=== PATIENT | male | born 1950 | race Caucasian/White ===

== ENCOUNTER → 2016-10-19 | Day surgery (SDC) | payer MEDICARE ==
[~2016-10-19] VITALS: Ht 177.8 cm; Wt 72.6 kg
[2016-10-19] VITALS (8 sets, daily range): BP systolic 121–150; BP diastolic 77–88; PULSE 64–79; RESP 10–18; O2SAT 95–98
[~2016-10-19] MED LIST: Bupivacaine-MPF 0.5% 30 mL Inj INFILTRATE ONE; CeFAZolin Inj 2 gm / 50mL D5W IV ONE; Dexamethasone 4 mg/mL Inj IVPUSH PRN; EPHEDrine Sulfate 50 mg/mL Inj IVPUSH PRN; HYDROmorphone 1 mg/mL Inj IVPUSH PRN; IBUP200C PO; Lactated Ringer's 1,000 ML IV ONE; Lactated Ringer's 1,000 ML IV SCH; Lactated Ringer's 500 ML IV PRN; MetoCLOpramide 5 mg/mL 2 mL Inj IVPUSH PRN; OXYC5TAB72 PO; Ondansetron 2 mg/mL 2 mL Inj IVPUSH PRN; Ondansetron 2 mg/mL 2 mL Inj ONE; PROC-4 PO; Phenylephrine 10,000 mCg/mL Inj IVPUSH PRN; Propofol 10,000 mCg/mL 20 mL Inj ONE; Succinylcholine Chloride 20 mg/mL 5 mL Inj ONE; fentaNYL-PF 50 mCg/mL 2 mL Inj IVPUSH PRN; fentaNYL-PF 50 mCg/mL 2 mL Inj ONE
--- NOTE | 2016-10-19 13:53 | PCM.HPANE ---
Patient Data Date of Service: Oct 19, 2016 ([id number]) Surgeon Admitting Provider: Attending Provider:Merissa Yeboah MD Primary Care Physician:Dionicio Lucio MD Other Provider:Bret Steele Anesthesia Reason for Visit Adenopathy, Chest Skin Lesion Ht/WT & BMI Height (Feet): 5 Height (Inches): 10.00 Weight (Kilograms): 72.6 Body Mass Index 22.00 Allergies Uncoded Allergies: WELBUTRIN (Allergy, Intermediate, stated gave him a strange feeling, ) Past Anesthesia History Anesthesia History: Denies:: Anesthesia Reactions Diabetes History Hx Diabetes?: No MRSA MRSA: No Medications Home Meds Incl Beta Jose Guadalupe: No No Active Prescriptions or Reported Meds History History of ENT Problems?: No Hx of Heart Problems?: Yes Cardiovascular History: Positive for:: Chest Pain (work up 2013- stress test) Hx of Respiratory Problem?: Yes Respiratory History: Positive for:: Pneumonia (past hx of) Tuberculosis (pos PPD, requiring Rx ) Denies:: Asthma COPD Emphysema Oxygen Administration Use of C-PAP Machine Use of Inhalers / NEBS Hx Neurologic Problems?: No Neurological History: Denies:: CVA Multiple Sclerosis Parkinson's Disease Seizures Hx of GI Problems?: No Gastrointestinal History: Denies:: Heartburn (past hx of) Hx of Problems?: No Male Hx: Denies:: Prostate Problems Skin History: Positive for:: History Skin Disorders? (Ithcyothis. Chest wall lesion current admission problem) Hx Musculoskeletal Problems?: Yes Musculoskeletal History: Positive for:: Back Injury (hx of prior back injury at age 20) Hx of Psycho/Social Problems?: Yes Psycho Social History: Positive for:: Hx Depression (past hx of) Hx Surgeries?: Yes (left ankle surgery) Hx Any Other Health Problems?: Yes Other History: Denies:: Cancer Endocrine Disease Hospitalization Thyroid Disease History Blood Transfusions: Denies:: Blood Transfusions Hx Diabetes: No Hx Alcohol Use: YesAlcoholic Drinks Per Day: 3 drinks dailyHx Substance Use: Yes (marijuana) Smoking Status: Current Every Day Smoker Have You Smoked inLast 12 mo: Yes Stop/Bang Treated for Sleep Apnea?: No Do You Have a CPAP Machine?: No P-Blood Pressure: treated: No B- Body Mass Index > 35 kg/m2: No A- Age over 50: Yes N- Neck Large Circumference: No G- Gender Male: Yes Risk Assessment Category Category 1A: Patient has history of documented sleep apnea, and HAS NOT received any narcotic, sedative or anesthesia administration during this stay. Category 1B: Patient has history of documented sleep apnea, and HAS received any narcotic , sedative or anesthesia administration during this stay Category 2: Patient has SUSPECTED Obstructive Sleep Apnea, and HAS received any narcotic , sedative or anesthesia administration during this stay. Category 3: Patient has SUSPECTED Obstructive Sleep Apnea and HAS NOT received narcotic, sedative or anesthesia administration during this stay. Category 4: Outpatient in Procedural Areas with known sleep apnea or who screen positive for High Risk via the STOP/BANG questionnaire. Exam Exam Vital Signs Vital Signs Date Time Temp Pulse Resp B/P Pulse Ox O2 Delivery O2 Flow Rate FiO2 10/19/16 12:01 35.9 79 18 121/81 98 Room Air General Appearance: Alert, Oriented X3 HEENT/AIRWAY: MP 1 Lungs: Clear to Auscultation Heart: Exam Unremarkable Meds/Labs/Diagnostics Admission Meds Current Medications Lactated Ringer's (Lr) 1,000 ml @ 120 mls/hr Q8H20M ONCE IV Last administered on 10/19/16t 11:41; Start 10/19/16 at 05:00; Stop 10/19/16 at 13:19; Status DC Plan Impression Patient chart reviewed, patient interviewed and anesthestic plan with risks, benefits, and alternatives discussed, and informed consent obtained. NPO Status: 1030pm ASA Physical Status: ASA2 Mod Systemic Disease Anesthetic Plan: GA Bene/Risks/Altern/Consents: Yes HP Complete Prior to Induction: Yes Zain Villalta MD Oct 19, 2016 13:53
[2016-10-19] MEDS: CeFAZolin 2 Gm/50 mL D5W IV Premix IV ONE ×2 (13:54→14:07)
--- NOTE | 2016-10-19 15:47 | PCM.ANEP2 ---
Post Anesthesia Evaluation ASA/CMS Post Anesthesia VS in Patient's Normal Range?: Yes Resp Stable; Airway Patent?: Yes CV Function & Hydration Stable: Yes Mental Status Recovered?: Yes Pain control Satisfactory?: Yes N/V Control Satisfactory?: Yes Zain Villalta MD Oct 19, 2016 15:47
--- NOTE | 2016-10-19 15:47 | PCM.ANEP1 ---
Post Anesthesia Phase 1 PACU Phase 1 Assessment Date of Service: Oct 19, 2016 ([id number]) Vital Signs Vital Signs Date Time Temp Pulse Resp B/P Pulse Ox O2 Delivery O2 Flow Rate FiO2 10/19/16 12:01 35.9 79 18 121/81 98 Room Air Anesthetic Administered: GA Level of Alertness: Awake, talking MORRISON's with Equal Strength: Yes Pain: No Nausea or Vomiting: No Oxygen Delivery: Simple Mask Lungs: Clear to Auscultation Dermatome Level: Full Sensation Summary Converted from LMA to ETT due to copious clear secretions in the circuit. No evidence of aspiration or particulate content. Respiratory parameters were all normal. Zain Villalta MD Oct 19, 2016 15:47
--- NOTE | 2016-10-19 15:51 | PCM.SURGPO ---
Immediate Operative Note Date of Surgery: Oct 19, 2016 Pre Operative Diagnosis Chest wall lesion, L Axillary Adenopathy Post Operative Diagnosis Chest wall lesion, Left Axillary Adenopathy Procedure Excisional biopsy of left axillary lymph nodes, Excisional biopsy of chest wall lesion Surgeon and Optomechanical Technician Surgeon: Merissa Yeboah MD Assistants: Juarez Lau, WONG, Rhonda Moncada MS3 Findings Grossly enlarged nodes, 5cm skin lesion of chest wall Complications There were no periprocedural complications identified. Surgical Specimen Removed: Yes Specimen sent to Pathology: Yes Anesthetic Administered: GA Grafts, Implants: None Output, Estimated Blood Loss: 2 Blood Admin during surgery: No Attending Statement Director Of Agriculture listed was medically necessary for the successful completion of the case Merissa Yeboah MD Oct 19, 2016 15:51
--- NOTE | 2016-10-19 19:28 | OP ---
[address] [address] OPERATIVE REPORT PATIENT: TRIP CÁRDENAS : 1950 MR#: [id number] ADMIT: 10/19/2016 JOB ID: [id number] DATE OF SURGERY: 10/19/2016 PREOPERATIVE DIAGNOSIS(ES): Left axillary adenopathy and skin lesion of the chest wall. POSTOPERATIVE DIAGNOSIS(ES): Left axillary adenopathy and skin lesion of the chest wall. PROCEDURE PERFORMED: Excisional biopsy of left axillary lymph node and a 5 cm lesion of the chest wall. SURGEON: Merissa Yeboah MD. WORK MEASUREMENT ENGINEER: DEUCE Hoang MS3. INDICATIONS: The patient is a 66-year-old gentleman who had skin problems and was given the diagnosis of ichthyosis a long time ago. He noticed a swelling in the front of his chest which has slowly grown bigger over the last few months. I performed a punch biopsy of the chest wall lesion and had him see Dermatology and requested an ultrasound-guided biopsy of the left axillary lymph node. The punch biopsy showed follicular keratin cyst with chronic folliculitis and the ultrasound-guided biopsy of the left axilla lymph node showed atypical lymphoid infiltrate, highly suspicious for lymphoma, but they did not have enough tissue. After discussing the risks, benefits, and alternatives, he is here today for excisional biopsy of both the lesions. I first began by making a horizontal incision in the left axilla, entering the axillary fat and identified enlarged lymph nodes inferiorly. I dissected these free from the surrounding skin and contents of the axilla with combination of blunt and sharp dissection. Used clips and electrocautery as appropriate, and once we extracted a conglomeration of enlarged lymph nodes, we divided the specimen for Pathology and additional assessment for flow cytometry. After this, we closed the axilla after making sure we had good hemostasis. I then directed my attention to the chest wall lesion. I made an elliptical incision oriented horizontally, raising skin flaps superiorly and inferiorly. I then took the skin full thickness down to the subcutaneous fat and obtained good hemostasis. Marked the specimen, orienting it with a stitch superiorly, and then closed the skin incision in layers of 3-0 Vicryl followed by 4-0 Monocryl. Dermabond was applied for dressing. Patient tolerated the procedure well and was taken to the recovery room in stable condition.
--- NOTE | 2016-10-23 12:06 | PATH ---
SURGICAL PATHOLOGY Attending Physician:Merissa Yeboah MD CASE STATUS: Signed Out PATIENT NAME: TRIP CÁRDENAS PID: [id number] : 1950 DATE COLLECTED:10/19/2016 23:39 SPECIMEN: 1: Lymph Node, Biopsy 2: Skin, biopsy CLINICAL HISTORY: ADENOPATHY, LEFT CHEST LESION 1). LEFT AXILLARY LYMPH NODE 2). CHEST SKIN LESION STITCH SUPERIOR FINAL DIAGNOSIS: 1. 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 2. Skin, Chest, Biopsy: Atypical nodular polymorphous lymphoid infiltrate suspicious for involvement by Hodgkin lymphoma; please see comment. ICD10 C81.9 NOTE: Additional immunohistochemical stains will be performed on the chest lesion biopsy in order to confirm the impression of involvement by Hodgkin lymphoma. These results and final diagnosis will be reported in an addendum. Flow Interpretation: [id number] Left axillary lymph node: No abnormal lymphocyte population; see Comment. Flow Comment: Flow cytometry performed on a suspension of cells disaggregated from the left axillary lymph node shows that lymphocytes comprise 96% of the total recovered viable cells. Lymphocytes consist mostly of small to intermediate cells with a small population of larger cells based upon the forward angle versus side-scatter plot. Lymphocytes consist of 83% mature T cells with a CD4/CD8 ratio of 3.2 and 14% polyclonal B cells with a kappa/lambda ratio of 1.2. No aberrant antigen expression or abnormal loss of antigens is identified on T or B cells. In summary, the flow cytometric analysis does not demonstrate an abnormal T or B lymphocyte population and thus provides no evidence to support a lymphoproliferative disorder of T or B cells. Please note that this flow cytometric analysis cannot detect Hodgkin lymphoma so that it is important to correlate the negative flow cytometric findings with the biopsy morphology and immunohistochemistry, if necessary, in order to provide a definitive interpretation and final diagnosis. GROSS DESCRIPTION: The specimens are received in formalin, labeled with the patient's name, and sublabeled as the following: (2) redesignated as (1) left axillary lymph node; (3) redesignated as (2) chest skin lesion. (1) The specimen consists of a piece of lymph node (2.5 x 2.2 x 1.3 cm). Section code: (1A-1D) one lymph node, serially sectioned. Specimen entirely submitted. (2) The specimen consists of an oriented ellipse of skin with subcutaneous tissue (1.8 cm AP, 4.6 cm SI, 5.0 cm ML) oriented with a black suture indicating the superior margin. The skin surface is montiel-pink smooth, shiny and unremarkable. The subcutaneous tissue is fibrous. Ink code: yellow-posterior; black-superior; orange-inferior; green-medial; blue-lateral. Section code: (2A) medial and lateral tips; (2B-2O) remaining ellipse of skin, serially sectioned and submitted ML. Specimen entirely submitted. Note: Per the requisition the original specimen #1 was sent to flow cytometry for analysis. 10/20/16 MICRO DESCRIPTION: 1) Sections show an enlarged lymph node with an atypical infiltrate forming fibrotic nodules scattered through the lymph node. Within the fibrotic nodules is a polymorphous infiltrate of small lymphocytes, eosinophils and atypical mononuclear and binucleated cells consistent with Ad-Philip cells and variants. Immunohistochemistry is performed to confirm the morphologic impression of Hodgkin lymphoma. IMMUNOHISTOCHEMISTRY STAINRESULT XG71Adkdzeur in a subset of Ad-Philip cells. IY3Rlxrvfqe in Da-Philip cells. KH99Yhzlpxgo in Ad-Philip cells. ZP99Plwwnite in Ad-Philip cells within the fibrotic nodules. CD15:Positive in Ad-Philip cells with both surface membrane staining and enhanced cytoplasmic staining of Golgi bodies. UKM1Wwedavic in Ad-Philip cells 2) Sections from the skin lesion show atypical fibrotic nodules scattered in the subcutaneous tissue and in the deep dermis. These nodules are comprised of a polymorphous infiltrate of small lymphocytes, eosinophils and large atypical mononuclear and rare binucleated cells suggestive of Hodgkin variants of Ad-Philip cells. ICD-9 CODES: CPT CODES: 1: 25523, 91312, 22930, 06721, 27045, 67350, 94338 2: 58704, 19751, 21629, 87964, 93935, 13622, 90435 PROCEDURE/ADDENDA: Addendum SPI Addendum Diagnosis The purpose of this addendum is to report the immunohistochemical stain results on the biopsy of the chest skin lesion: STAINRESULT TW4Ybrkvrbr in atypical large cells. BY22Pnodmxnk in atypical large cells. BH13Kddyaqlg in atypical large cells. GS80Zeowvyjw in atypical large cells. PD95Anjpqkol in small subset of atypical large cells. GTB6Gibqp nuclear positivity in a small subset of atypical large lymphocytes. Addendum Comment The immunohistochemical stain results in conjunction with the morphology are very suspicious for skin and subcutaneous tissue involvement by Hodgkin lymphoma. As this is a relatively rare phenomenon, this case will be referred to the Department of Hematopathology at the [facility] for a second opinion. Electronically Signed Out Cory Oneil MD, PhD Addendum SPI Addendum Diagnosis Slides reviewed at [facility] by Bekah Warner MD, Pathologist Lymph node, left axillary, excisional biopsy: -CD30 positive malignant lymphoma (see comment). Skin, chest, excisional biopsy -Mycosis fungoides. -Deep dermal and subcutaneous nodular fibrosing inflammatory process with associated atypical CD30 positive cells (see comment). Comment: Thank you for sending this unusual and challenging case in consultation. The morphologic and immunohistochemical features of the lymph node demonstrate findings that are favored to represent classical Hodgkin lymphoma (CHL), with a not entirely typical phenotype, and the additional confounder of the skin findings. Although the Ad-Philip (RS) cells are positive for CD15, MUM1 and BCL6 (subset), there is also variable positivity for CD2 and CD4, additionally with a few expressing CD43 and CD45. The RS cells are negative for CD3, CD5, CD7, CD8 and PAX5. Interestingly, the patient also has mycosis fungoides in the skin (MF) and scattered subcutaneous/dermal fibrotic nodules with an associated inflammatory milieu (predominantly composed of histiocytes, eosinophils and lymphocytes), and occasional large atypical CD30 positive cells. The MF is recognized as a dense band-like infiltrate with epidermotropism, which is positive for CD2, CD3 and CD4 with decreased to absent express of CD5 and CD7. I considered the possibility of transformation of MF in the skin to a Hodgkin-like process with secondary involvement of the lymph node, particularly given the patchy lymph node involvement (and possible draining lymph node site); however, the additional clinical and morphologic findings are not entirely typical for leandro involvement by a CD30 positive cutaneous T cell lymphoma (CTCL). Most (but not all) of the reported patients with leandro involvement by CD30 positive CTCL demonstrate long standing cutaneous disease, with neoplastic cells showing a sinusoidal infiltrate within the lymph node and focal areas with eosinophils and neutrophils. Although in this patient, the neoplastic cells are negative for PAX5 and express CD2 and CD4 (findings typical of leandro involvement by CD30 positive CTCL), T cell marker expressed in CHL can certainly occur (with expression of CD2 AND CD4 being the most common). The neoplastic cells in the lymph node are morphologically typical of Ad-Philip cells (most of the cells with slightly basophilic cytoplasm and single prominent nucleolus) and the nodular dermal/subcutaneous fibrosing pattern present in the chest wall is a pattern more common (albeit rare) in CHL, than transformed MF. T cell clonality studies are positive for a clonal rearrangement in the skin, and negative in the lymph node, further supporting the impression of CHL in the lymph node and MF in the skin. Given the unusual nature of the case and lack of confident consensus at out institution, the case will be sent for an additional outside opinion (an addendum will follow). These challenges have been discussed with Dr. Oneli. Addendum Comment Please see [facility] report [id number] for complete details. Electronically Signed Out Cory Oneil MD, PhD Addendum SPI Addendum Diagnosis This addendum is issued to report the results of consultation at the [facility], as reported in Medicine addendum report [id number]: This case was sent to Dr. Lauren Michelle at the [facility] for an additional opinion, which is as follows: ([id number]) PART 1: LYMPH NODE, LEFT AXILLARY, EXCISIONAL BIOPSY ([facility] [id number], [id number], 10/19/2016, [facility]): MALIGNANT LYMPHOMA, FAVOR CLASSICAL HODGKIN TYPE (see comment). PART 2: SKIN, CHEST, EXCISIONAL BIOPSY ([facility] [id number], [id number], 10/19/2016, [facility]): MALIGNANT LYMPHOMA (see comment). Addendum Comment The histologic sections of part 1, together with the paraffin section immunohistochemistry/in-situ hybridization and reported flow cytometric immunophenotypic and molecular studies, demonstrate a malignant lymphoma that has many features most like classical Hodgkin lymphoma, although the PAX5 immunohistochemical stain is negative, which is unusual and some of the neoplastic cells have a somewhat unusual cytology. The presence of CD2 expression as seen in the large neoplastic cells is still compatible with classical Hodgkin lymphoma. Aberrant T cell antigen expression in Hodgkin lymphoma is reportedly associated with an adverse prognosis (Blood. 2014;121:1795-804). There also appears to be some CD43 expression on the large cells. The lymph node also demonstrates dermatopathic change. The histologic sections of part 2, together with the paraffin section immunohistochemistry/in-situ hybridization and reported molecular studies demonstrate skin and subcutaneous tissue with an infiltrate in the subcutaneous tissue that closely resembles that of the lymph node although the large cells appear to largely CD2 negative and CD15 negative. In addition, the superficial changes strongly suggest the possibility of mycosis fungoides, although clinical correlation would be essential. It is noted that the skin, but not the lymph node, demonstrates a clonal T-cell receptor gamma chain rearrangement. The possibility that the Hodgkin-like lesion in this excisional biopsy and the lymph node represents transformation of mycosis fungoides cannot be totally excluded, particularly with the lack of PAX5 expression in the neoplastic Ad-Philip cells. Although, reassessment of many cases reported as Hodgkin lymphoma associated with mycosis fungoides suggests that they represent a T-cell neoplasm (Am J Surg Pathol. 2012;36: 716-725). Some of the T cells in areas of apparent Hodgkin lymphoma may also represent the apparent cutaneous T-cell lymphoma. As noted above, clinical correlation remains critical in completely assessing the nature of the more superficial lymphoid infiltrate. Please see [facility] Addendum for report [id number] for complete details. Electronically Signed Out Camilla Vail MD Electronically Signed Out Cory Oneil MD, PhD [facility] [address], [place] [address] Technical component performed at [facility], [address], [place], [address]
== END | disposition home or self-care (01) ==
LOC: SAS 11:37
PROVIDERS: ATTEND Student in an Organized Health Care Education/Training Program
DX: C81.14 Nodular sclerosis Hodgkin lymphoma, lymph nodes of axilla and upper limb (principal); L98.6 Other infiltrative disorders of the skin and subcutaneous tissue; F17.210 Nicotine dependence, cigarettes, uncomplicated
CPT/HCPCS: 11406; 38525; 88184; 88185; 88305; 88341; 88342; J0330; J0690; J1885; J2250; J2405; J3010; J7120

== ENCOUNTER 2016-11-09 13:11 | Day surgery (SDC) | payer MEDICARE ==
[2016-11-09] VITALS (8 sets, daily range): BP systolic 126–138; BP diastolic 74–85; PULSE 56–73; RESP 9–18; O2SAT 99–100
[~2016-11-09] VITALS: Ht 175.3 cm; Wt 72.4 kg
[~2016-11-09 13:11] MED LIST changes: -Bupivacaine-MPF 0.5% 30 mL Inj INFILTRATE ONE; +CeFAZolin 2 Gm/50 mL D5W IV Premix IV ONE; -CeFAZolin Inj 2 gm / 50mL D5W IV ONE; -Dexamethasone 4 mg/mL Inj IVPUSH PRN; -EPHEDrine Sulfate 50 mg/mL Inj IVPUSH PRN; -HYDROmorphone 1 mg/mL Inj IVPUSH PRN; -Lactated Ringer's 1,000 ML IV ONE; -Lactated Ringer's 1,000 ML IV SCH; -Lactated Ringer's 500 ML IV PRN; -MetoCLOpramide 5 mg/mL 2 mL Inj IVPUSH PRN; -Ondansetron 2 mg/mL 2 mL Inj IVPUSH PRN; -Ondansetron 2 mg/mL 2 mL Inj ONE; -PROC-4 PO; -Phenylephrine 10,000 mCg/mL Inj IVPUSH PRN; -Propofol 10,000 mCg/mL 20 mL Inj ONE; -Succinylcholine Chloride 20 mg/mL 5 mL Inj ONE; -fentaNYL-PF 50 mCg/mL 2 mL Inj IVPUSH PRN; -fentaNYL-PF 50 mCg/mL 2 mL Inj ONE
[2016-11-09] MEDS ORDERED: Dexamethasone 4 mg/mL Inj ONE (13:12)
[2016-11-09] MEDS ORDERED: Ondansetron 2 mg/mL 2 mL Inj ONE (13:12)
[2016-11-09] MEDS ORDERED: Propofol 10,000 mCg/mL 20 mL Inj ONE (13:12)
[2016-11-09] MEDS: Lactated Ringer's 1,000 ML IV SCH ×2 (13:27→14:20)
[2016-11-09] MEDS ORDERED: CeFAZolin Inj 2 gm / 50mL D5W IV ONE (13:48)
[2016-11-09] MEDS ORDERED: Bupivacaine-MPF 0.5% 30 mL Inj INFILTRATE ONE (14:20)
[2016-11-09] MEDS ORDERED: HepLOK Flush 100 unit/mL 5 mL Inj IVFLUSH ONE (14:20)
[2016-11-09] MEDS ORDERED: Lactated Ringer's 500 ML IV PRN (14:56)
[2016-11-09] MEDS ORDERED: Lactated Ringer's 1,000 ML IV SCH (14:56)
--- NOTE | 2016-11-09 14:56 | PCM.HPANE ---
Patient Data Date of Service: Nov 09, 2016 Surgeon Admitting Provider: Attending Provider:Merissa Yeboah MD Primary Care Physician:Dionicio Lucio MD Other Provider:Bret Steele Anesthesia Reason for Visit Nodular Sclerosis Hodgkin's Lymphoma Ht/WT & BMI Height (Feet): 5 Height (Inches): 9 Weight (Kilograms): 72.4 Body Mass Index 23.00 Allergies Coded Allergies: bupropion (Verified Allergy, Intermediate, pt states it made him feel funny, 11/09/16) Past Anesthesia History Anesthesia History: Denies:: Anesthesia Reactions Diabetes History Hx Diabetes?: No MRSA MRSA: No Medications Home Meds Incl Beta Jose Guadalupe: No Active Scripts oxyCODONE 5 Mg Tablet5 Mg PO Q4H PRN For Moderate Pain #20 TABLET Prov:Merissa Yeboah MD 10/19/16 Reported Medications Ibuprofen 200 Mg [id number] Mg PO PRN PRN For Pain Ref 0 11/03/16 History History of ENT Problems?: No Hx of Heart Problems?: Yes Cardiovascular History: Positive for:: Chest Pain (work up 2013- stress test) Denies:: AICD Heart Murmur Irregular Heartbeat Pacemaker Hx of Respiratory Problem?: Yes Respiratory History: Positive for:: Pneumonia (past hx of) Tuberculosis (pos PPD, requiring Rx ) Denies:: Asthma COPD Emphysema Oxygen Administration Use of C-PAP Machine Hx Neurologic Problems?: No Neurological History: Denies:: CVA Multiple Sclerosis Parkinson's Disease Seizures Hx of GI Problems?: No Gastrointestinal History: Denies:: Heartburn (past hx of) Hx of Problems?: No Male Hx: Denies:: Prostate Problems Skin History: Positive for:: History Skin Disorders? (Ithcyothis. Chest wall lesion surgery on 10/19/16) Hx Musculoskeletal Problems?: Yes Musculoskeletal History: Positive for:: Back Injury (hx of prior back injury at age 20) Hx of Psycho/Social Problems?: Yes Psycho Social History: Positive for:: Hx Depression (past hx of) Hx Surgeries?: Yes (left ankle surgery, exc chest wall lesion) Hx Any Other Health Problems?: Yes Other History: Positive for:: Cancer (hodgkins lymphoma current admission problem) Denies:: Endocrine Disease Hospitalization Thyroid Disease History Blood Transfusions: Denies:: Blood Transfusions Hx Diabetes: No Hx Alcohol Use: YesAlcoholic Drinks Per Day: 3 drinks dailyHx Substance Use: Yes (marijuana) Smoking Status: Current Every Day Smoker Have You Smoked inLast 12 mo: Yes Stop/Bang Treated for Sleep Apnea?: No Do You Have a CPAP Machine?: No S-Snoring: Do You Snore Loudly: No T-Tired: feel tired, fatigued: No O-Obsered: Observed not breath: No P-Blood Pressure: treated: No B- Body Mass Index > 35 kg/m2: No A- Age over 50: Yes N- Neck Large Circumference: No G- Gender Male: Yes KAYKAY Total Score: 2 KAYKAY Risk Assessment: Low Risk, <3 Yes Risk Assessment Category Category 1A: Patient has history of documented sleep apnea, and HAS NOT received any narcotic, sedative or anesthesia administration during this stay. Category 1B: Patient has history of documented sleep apnea, and HAS received any narcotic , sedative or anesthesia administration during this stay Category 2: Patient has SUSPECTED Obstructive Sleep Apnea, and HAS received any narcotic , sedative or anesthesia administration during this stay. Category 3: Patient has SUSPECTED Obstructive Sleep Apnea and HAS NOT received narcotic, sedative or anesthesia administration during this stay. Category 4: Outpatient in Procedural Areas with known sleep apnea or who screen positive for High Risk via the STOP/BANG questionnaire. Exam Exam Vital Signs Vital Signs Date Time Temp Pulse Resp B/P Pulse Ox O2 Delivery O2 Flow Rate FiO2 11/09/16 13:34 36.8 71 18 128/85 100 Room Air General Appearance: Alert, Oriented X3 HEENT/AIRWAY: MP 1 Lungs: Clear to Auscultation Heart: Exam Unremarkable Meds/Labs/Diagnostics Admission Meds Current Medications Cefazolin Sodium/ Dextrose 2 gm/ Premix 50 ml @ 100 mls/hr PREOP ONCE IV Last administered on 11/09/16 14:34; Start 11/09/16 at 06:00; Stop 11/09/16 at 06: 29; Status DC Lactated Ringer's (Lr) 1,000 ml @ 120 mls/hr Q8H20M IV Last administered on 14:20; Start 11/09/16 at 05:00; Stop 11/09/16 at 13:21; Status DC Heparin Sodium (Porcine) (HepLOK Flush Inj) 500 unit STK-MED ONCE IVFLUSH Last administered on 11/09/16 14:20; Start 11/09/16 at 14:20; Stop 11/09/16 at 14:45; Status DC Bupivacaine HCl (Sensorcaine-MPF 0.5% Inj) 30 ml STK-MED ONCE INFILTRATE Last administered on 11/09/16 14:20; Start 11/09/16 at 14:20; Stop 11/09/16 at 14:45; Status DC Plan Impression Patient chart reviewed, patient interviewed and anesthestic plan with risks, benefits, and alternatives discussed, and informed consent obtained. NPO Status: 11/09/16 SIP H2O THIS MORNING Trung Mendoza MD Nov 09, 2016 14:56
[2016-11-09] MEDS ORDERED: Dexamethasone 4 mg/mL Inj IVPUSH PRN (15:00)
[2016-11-09] MEDS ORDERED: Phenylephrine 10,000 mCg/mL Inj IVPUSH PRN (15:00)
[2016-11-09] MEDS ORDERED: Ondansetron 2 mg/mL 2 mL Inj IVPUSH PRN (15:00)
[2016-11-09] MEDS ORDERED: HYDROmorphone 1 mg/mL Inj IVPUSH PRN (15:00)
[2016-11-09] MEDS ORDERED: fentaNYL-PF 50 mCg/mL 2 mL Inj IVPUSH PRN (15:00)
[2016-11-09] MEDS ORDERED: EPHEDrine Sulfate 50 mg/mL Inj IVPUSH PRN (15:00)
[2016-11-09] MEDS ORDERED: MetoCLOpramide 5 mg/mL 2 mL Inj IVPUSH PRN (15:00)
--- NOTE | 2016-11-09 15:45 | DRSVH ---
PROCEDURE: X-RAY CHEST ONE VIEW, PORTABLE ([id number]) INDICATIONS: Port placement TECHNIQUE: One view of the chest was acquired. COMPARISON: 09/07/2016 FINDINGS: Surgical changes and devices: Left-sided port has been placed with tip overlying the atrial caval yaw ction. Surgical clips now present in the left axilla. Lungs and pleura: No pleural effusions or pneumothorax. Lungs are clear. Mediastinum: Mediastinal contours appear normal. Heart size is normal. Bones and chest wall: No suspicious bony lesions. Overlying soft tissues appear unremarkable. IMPRESSION: 1. Port placement with no apparent pneumothorax or other complication. 2. Surgical clips now present in the left axilla. 3. No acute cardiopulmonary abnormality. Dictated by: Marky Noguera M.D. on 11/09/2016 at 15:43 Approved by: Marky Noguera M.D. on 11/09/2016 at 15:44
--- NOTE | 2016-11-09 16:55 | PCM.ANEP2 ---
Post Anesthesia Evaluation ASA/CMS Post Anesthesia VS in Patient's Normal Range?: Yes Resp Stable; Airway Patent?: Yes CV Function & Hydration Stable: Yes Mental Status Recovered?: Yes Pain control Satisfactory?: Yes N/V Control Satisfactory?: Yes Trung Mendoza MD Nov 09, 2016 16:55
--- NOTE | 2016-11-09 16:55 | PCM.ANEP1 ---
Post Anesthesia Phase 1 PACU Phase 1 Assessment Date of Service: Nov 09, 2016 Vital Signs Vital Signs Date Time Temp Pulse Resp B/P Pulse Ox O2 Delivery O2 Flow Rate FiO2 11/09/16 15:55 56 14 129/76 100 Room Air 11/09/16 15:41 65 12 135/81 99 Room Air 11/09/16 15:36 37.0 66 9 138/84 100 Room Air 11/09/16 15:25 68 10 133/77 100 Room Air 11/09/16 15:21 69 9 138/84 100 Room Air 11/09/16 15:15 71 11 126/81 100 Room Air 11/09/16 15:12 36.4 73 15 129/74 100 Room Air 11/09/16 13:34 36.8 71 18 128/85 100 Room Air Anesthetic Administered: GA Level of Alertness: Awake, talking Nausea or Vomiting: No Oxygen Delivery: Room Air Lungs: Clear to Auscultation Trung Mendoza MD Nov 09, 2016 16:55
--- NOTE | 2016-11-10 00:08 | OP ---
[address] [address] OPERATIVE REPORT PATIENT: TRIP CÁRDENAS : 1950 MR#: [id number] ADMIT: 11/09/2016 JOB ID: [id number] DATE OF SURGERY: 11/09/2016 PREOPERATIVE DIAGNOSIS(ES): Hodgkin's lymphoma. POSTOPERATIVE DIAGNOSIS(ES): Hodgkin's lymphoma. PROCEDURE PERFORMED: Left subclavian tunneled central venous catheter with subcutaneous port placement under intraoperative fluoroscopy. SURGEON: Merissa Yeboah MD. JUVENILE COUNSELOR: SINTIA Ambriz. COMPLICATIONS: None. CONDITION OF THE PATIENT: Stable. INDICATIONS: The patient is a 66-year-old gentleman who presented with left axillary adenopathy and a chest skin lesion on whom I performed excisional biopsy of both areas, which was consistent with Hodgkin's lymphoma. He was seen by Dr. Baxter, who requested a tunneled central venous catheter placement for chemotherapy, and after discussing the risks, benefits and alternatives, he is here to have it done. PROCEDURE DETAILS: He was placed in a supine position, underwent smooth induction of general anesthesia. The neck and chest were prepped and draped in the usual sterile fashion. Surgical time-out was undertaken using safety checklist, and all were in agreement. We placed him in steep Trendelenburg position and entered the left subclavian vein with Seldinger technique, and advanced the wire and confirmed placement fluoroscopically. I measured the wire to determine the required length of the catheter and then made a pocket over the left pectoralis for the port. I then anchored the port over to the pectoralis with PDS sutures x2 and cut the catheter after attaching it to the port to the appropriate length. I then dilated the wire with the introducer dilator and then advanced the catheter through the introducer sheath and removed the tear-away sheath. I found the port to be aspirating and flushing well and then I locked it with 100 units per mL of heparin, and confirmed placement with final fluoroscopic images. Closed the skin with layers of 4-0 Monocryl. Patient tolerated the procedure well, recovered from anesthesia, and was taken to the recovery room in stable condition.
[2017-01-19] MEDS ORDERED: PROC-4 PO (11:59)
== END 2016-11-09 23:59 | disposition home or self-care (01) ==
LOC: SAS 13:11
PROVIDERS: ATTEND Student in an Organized Health Care Education/Training Program
PROC: 02H633Z Insertion of Infusion Device into Right Atrium, Percutaneous Approach (ICD-10-PCS; 2016-11-09)
PROC: B2141ZZ Fluoroscopy of Right Heart using Low Osmolar Contrast (ICD-10-PCS; 2016-11-09)
PROC: 0JH60XZ Insertion of Tunneled Vascular Access Device into Chest Subcutaneous Tissue and Fascia, Open Approach (ICD-10-PCS; principal; 2016-11-09 15:00)
DX: C81.14 Nodular sclerosis Hodgkin lymphoma, lymph nodes of axilla and upper limb (principal); Q80.9 Congenital ichthyosis, unspecified; E78.5 Hyperlipidemia, unspecified
CPT/HCPCS: 36561; 71010; 77001; C1788; J0690; J1100; J1642; J2405; J7120